=== PATIENT | male | born 1940 | race Caucasian/White ===

== ENCOUNTER → 2019-07-09 | Outpatient (REF) | payer OTHER | LOC: M LAB REF 09:04 | PROVIDERS: ATTEND Dermatology | DX: D49.2 Neoplasm of unspecified behavior of bone, soft tissue, and skin (principal); D22.62 Melanocytic nevi of left upper limb, including shoulder | CPT/HCPCS: 11102; 11103; 17000; 17003; 88305; 88342; G0463 ==

== ENCOUNTER → 2019-10-06 | Outpatient (REF) | payer OTHER | LOC: M LAB REF 10:09 | PROVIDERS: ATTEND Dermatology | DX: C44.1222 Squamous cell carcinoma of skin of right lower eyelid, including canthus (principal) ==

== ENCOUNTER 2020-04-20 12:31 | Inpatient (IN) | payer OTHER ==
[~2020-04-20] VITALS: Ht 185.4 cm; Wt 74.6 kg
[2020-04-20 13:22] LABS: BASO % 0.4 % (0.0-1.0); EOS % 0.8 % (0.0-3.0); HEMATOCRIT 43.1 % (42.0-52.0); HEMOGLOBIN 14.2 g/dl (13.5-17.5); LYMPH % 19.8 % (24.0-44.0); MEAN CORPUSCULAR HEMOGLOBIN 30.4 pg (27.0-33.0); MEAN CORPUSCULAR HGB CONC 32.9 g/dl (32.0-36.5); MEAN CORPUSCULAR VOLUME 92.3 fl (80.0-96.0); MONO # 1.5 10^3/uL (0.0-0.8); MONO % 28.2 % (0.0-5.0); NEUTROPHILS # 2.6 10^3/uL (1.5-8.5); NEUTROPHILS % 50.4 % (36.0-66.0); PLATELET COUNT, AUTOMATED 118 10^3/uL (150-450); RED BLOOD COUNT 4.67 10^6/uL (4.30-6.10); WHITE BLOOD COUNT 5.2 10^3/uL (4.0-10.0)
[2020-04-20 13:31] LABS: INR 1.04; PARTIAL THROMBOPLASTIN TIME 29.5 SECONDS (24.2-38.5); PROTHROMBIN TIME 13.8 SECONDS (12.5-14.3)
--- NOTE | 2020-04-20 13:38 | REP ---
INDICATION: CHEST PAIN COMPARISON: None. TECHNIQUE: Portable AP view of the chest FINDINGS: The mediastinum and cardiac silhouette are stable and within normal limits for portable technique. The lung jeffries demonstrate chronic appearing changes without acute consolidation, effusion, or pneumothorax. Skeletal structures are intact. IMPRESSION: Chronic appearing changes. No focal consolidation or effusion. <Electronically signed by Mitchell Piedra > 04/20/20 [id number]
[2020-04-20 13:54] LABS: ALBUMIN 3.4 GM/DL (3.2-5.2); ALT/SGPT 18 U/L (12-78); BILIRUBIN,DIRECT 0.1 MG/DL (0.0-0.2); BILIRUBIN,TOTAL 0.4 MG/DL (0.2-1.0); BLOOD UREA NITROGEN 21 MG/DL (7-18); CALCIUM LEVEL 8.9 MG/DL (8.8-10.2); CARBON DIOXIDE LEVEL 28 MEQ/L (21-32); CHLORIDE LEVEL 106 MEQ/L (98-107); CK-MB VALUE MASS 1.2 NG/ML (<3.6); CPK CREATINE PHOSPHOKINASE 64 U/L (39-308); CREATININE FOR GFR 0.99 MG/DL (0.70-1.30); FREE T4 1.04 NG/DL (0.76-1.46); GLOMERULAR FILTRATION RATE > 60.0 (>35); GLUCOSE, FASTING 85 MG/DL (70-100); LIPASE 94 U/L (73-393); MB/CK RELATIVE INDEX 1.88 (< OR =4); NT-PRO BNP 148 PG/ML (<450); POTASSIUM SERUM 3.7 MEQ/L (3.5-5.1); SODIUM LEVEL 142 MEQ/L (136-145); TOTAL PROTEIN 6.3 GM/DL (6.4-8.2); TROPONIN I < 0.02 NG/ML (< 0.10)
[2020-04-20] MEDS ORDERED: ISOVUE-370 76% 100ML VIAL As Ordered ONE (14:30)
--- NOTE | 2020-04-20 15:07 | REP ---
INDICATION: SOB/chest pain; r/o PE COMPARISON: None. TECHNIQUE: Axial contrast enhanced images from the thoracic inlet to the upper abdomen using pulmonary embolus technique with multiplanar re-formations. 75 ml Isovue 370 intravenous contrast material administered without complication. This CT examination was performed using the following dose reduction techniques: Automated exposure control, adjustment of mA and/or kv according to the patient's size, and use of iterative reconstruction technique. FINDINGS: Satisfactory enhancement of the pulmonary vasculature is achieved and no filling defects are identified to suggest pulmonary embolus. Further evaluation of the mediastinum demonstrates atherosclerotic changes to the thoracic aorta and coronary arteries without aortic aneurysm or dissection. Cardiomegaly suggested without pericardial effusion. The bilateral lung jeffries demonstrate chronic emphysematous changes with bronchiectasis and mild lower lobe scarring. Few scattered small calcified and noncalcified nodules measure up to 4 mm and likely represent chronic change. No acute consolidation. No effusion. No pneumothorax. No axillary, hilar, or mediastinal adenopathy. Surrounding musculoskeletal structures are intact. Limited upper abdomen demonstrates normal bilateral adrenal glands and cholelithiasis. IMPRESSION: 1. No evidence for pulmonary embolus. Relatively normal thoracic aorta without aneurysm or dissection. 2. Chronic emphysematous changes with bronchiectasis and minimal basilar scarring. 3. Incidental cholelithiasis. <Electronically signed by Mitchell Piedra > 04/20/20 [id number]
[2020-04-20 16:53] LABS: D-DIMER QUANT 1274.77 ng/ml (<500)
[2020-04-20 17:01] LABS: FERRITIN 124 NG/ML (26-388); LDH LACTATE DEHYDROGENASE 150 U/L (87-241)
[2020-04-20] MEDS ORDERED: MELO15TA28 PO (17:44)
[2020-04-20] MEDS ORDERED: LISI10TA4 PO (17:44)
[2020-04-20] MEDS ORDERED: ASPI-161 PO (17:44)
[2020-04-20] MEDS ORDERED: D31000TA2 PO (17:44)
[2020-04-20] MEDS ORDERED: VOLT1GEL15 TOP (17:44)
[2020-04-20] MEDS ORDERED: CETI-24 PO (17:44)
[2020-04-20] MEDS ORDERED: ZINC1TAB2 PO (17:44)
[2020-04-20] MEDS ORDERED: NEXI20CA PO (17:44)
[2020-04-20] MEDS ORDERED: ZOCO80TA PO (17:44)
[2020-04-20] MEDS ORDERED: PANTOPRAZOLE 40MG TAB (PROTONIX) PO PRN (18:00)
[2020-04-20 18:12] LABS: C REACTIVE PROTEIN QUANTITATIV 0.49 MG/DL (0.00-0.30)
[2020-04-20 18:51] VITALS: BP 147/85
--- NOTE | 2020-04-20 18:51 | HPEPDOC ---
[facility] Medical History & Physical Date of Admission Apr 20, 2020 Date of Service: Apr 20, 2020 Attending Physician: LIYAH VELEZ MD History and Physical CHIEF COMPLAINT: chest pain HISTORY OF PRESENT ILLNESS: 79 yo M with a history of COPD, CAD, Afib not on chronic AC, GERD, HLD, osteoarthritis, who presented with acute substernal atypical chest pain since this morning, reporting URI symptoms of a dry cough, SOB, congestion of 3 days duration. In the ED, he was hemodynamically stable and given his tobacco history, HLD, chest pain and history of Afib, he had an EKG that showed no ST or T wave changes and showed 1st degree heart block, while troponin was negative. He had a CXR that was unremarkable without consolidations or effusions and given the ongoing chest pain, he had a CTA chest done that showed no PE and chronic emphysema without GGOs, masses or evidence of PNA. Given the history of recent URI symptoms he had a respiratory panel done that resulted in a positive covid-19 test. WBC was 5.2, hgb 14.2, platelets 118, D dimer 1274, INR 1.04, troponin negative, LFTs wnl, TSH and free T4 wnl lactate wnl, proBNP of 148 wnl. He did not desaturate on ambulation and is stable on room air currently. He is however being admitted as his ROSALIND score per guidelines showed 11% risk for mortality given his age >65, male gender, COPD, HTN, heart disease history. PAST MEDICAL HISTORY: COPD, CAD, Afib not on chronic AC, GERD, HLD, osteoarthritis, HTN PAST SURGICAL HISTORY: back surgery R hand digit amputation SOCIAL HISTORY: Independent with all ADLs and iADLs. Lives at home. FAMILY HISTORY: non contributory ALLERGIES: Please see below. REVIEW OF SYSTEMS: As noted in HPI. 12 point ROS was otherwise negative. HOME MEDICATIONS: Please see below. PHYSICAL EXAMINATION: VITAL SIGNS: HDS, afebrile, stable on room air. See below for details GENERAL APPEARANCE: NAD, well appearing older gentleman HEENT: NCAT, no injection or icterus. MMM CARDIOVASCULAR: MMM, no m/r/g LUNGS: CTAB at this time ABDOMEN: Normoactive sounds, NTND EXTREMITIES: WWP, no LE edema NEUROLOGICAL: CN2-12 intact, moving all extremities, nonfocal exam PSYCHIATRIC: AOx3 LABORATORY DATA: Summarized above. IMAGING: Summarized above MICROBIOLOGY: Please see below. ASSESSMENT: 79 yo M admitted covid PNA with associated chest pain. PLAN: Covid PNA: -contact and droplet isolation -currently on room air, may give supplemental O2 if <88% -Q4H vitals with pulse ox -strict covid labs per guideline -Currently doing well, no steroids or other adjunctive therapies or pulmonology consultation. Will monitor labs -lovenox 40 BID DVT ppx Chest pain with history of CAD: no evidence of ACS at this time -non ischemic EKG, negative troponin -telemetry -f/u troponin labs -continue home ASA -continue home simvastatin HLD: -continue home simvastatin COPD: no evidence of exacerbation at this time -monitoring sats closely -advair and albuterol mdi History of Afib not on home AC: -telemetry -currently in sinus -placed on lovenox 40 BID for covid thrombosis ppx -ASA 162 QHS HTN: -continue home lisinopril DVT ppx: lovenox 40mg BID Dispo: medsurg with tele. Vital Signs Vital Signs Date Time Temp Pulse Resp B/P (MAP) Pulse Ox O2 Delivery O2 Flow Rate FiO2 04/20/20 18:01 62 92 04/20/20 18:00 140/80 (100) 04/20/20 13:18 Room Air 04/20/20 12:33 98.3 24 Laboratory Data Labs 24H Laboratory Tests 2 04/20/20 12:54: Immature Granulocyte % (Auto) 0.4, Neutrophils (%) (Auto) 50.4, Lymphocytes (%) (Auto) 19.8L, Monocytes (%) (Auto) 28.2H, Eosinophils (%) (Auto) 0.8, Basophils (%) (Auto) 0.4, Neutrophils # (Auto) 2.6, Lymphocytes # (Auto) 1.0L, Monocytes # (Auto) 1.5H, Eosinophils # (Auto) 0.0, Basophils # (Auto) 0.0, Nucleated Red Blood Cells % (auto) 0.0, Prothrombin Time 13.8, Prothromb Time International Ratio 1.04, Activated Partial Thromboplast Time 29.5, Fibrinogen 381, D-Dimer, Quantitative 1274.77H, Anion Gap 8, Glomerular Filtration Rate > 60.0, Lactic Acid Level 1.2, Calcium Level 8.9, Magnesium Level 2.0, Ferritin 124, Total Bilirubin 0.4, Direct Bilirubin 0.1, Aspartate Amino Transf (AST/SGOT) 22, Alanine Aminotransferase (ALT/SGPT) 18, Alkaline Phosphatase 44L, Lactate Dehydrogenase 150, Total Creatine Kinase 64, Creatine Kinase MB 1.2, Creatine Kinase MB Relative Index 1.88, Troponin I < 0.02, TC-Chp-R-Type Natriuretic Peptide 148, Total Protein 6.3L, Albumin 3.4, Albumin/Globulin Ratio 1.2, Lipase 94, Procalcitonin <0.05, Thyroid Stimulating Hormone (TSH) 2.990, Free Thyroxine 1.04 04/20/20 15:26: Coronavirus (COVID-19)(PCR) POSITIVEA CBC/BMP Laboratory Tests 04/20/20 12:54 Microbiology Microbiology 04/20/20 Blood Culture, Received Pending 04/20/20 Blood Culture, Received Pending Home Medications Scheduled Aspirin (Aspirin EC) 81 Mg Tablet.dr, 162 MG PO QHS Cetirizine HCl (Cetirizine HCl) 10 Mg Tablet, 10 MG PO QHS Cholecalciferol (Vitamin D3) (Vitamin D3) 1,000 Unit Tablet, 1,000 UNITS PO DAILY Lisinopril (Lisinopril) 10 Mg Tablet, 10 MG PO DAILY Meloxicam (Meloxicam) 15 Mg Tablet, 7.5 MG PO DAILY Simvastatin (Zocor) 80 Mg Tablet, 80 MG PO DAILY Zinc (Zinc) 50 Mg Tablet, 50 MG PO DAILY Scheduled PRN Diclofenac Sodium (Voltaren) 100 Gm Gel..gram., 2 GRAM TOP BID PRN for PAIN APPLY TO THUMB AND KNEES Esomeprazole Magnesium (Nexium) 20 Mg Capsule.dr, 20 MG PO DAILY PRN for HEARTB URN Allergies Coded Allergies: No Known Allergies (Unverified , 04/20/20) A-FIB/CHADSVASC A-FIB History Current/History of A-Fib/PAF?: No Current PO Anticoag Therapy: No Age/Risk Factor Scoring CHADSVASC: CHADSVASC Response (Comments) Value Age Risk Factor Age >/= 75 years old 2 Gender Risk Factor Male 0 Hx of CHF Yes 1 Hx of HTN Yes 1 Hx of Stroke/TIA/or VTE No 0 Hx of Diabetes No 0 Hx of Vascular Disease Yes 1 Total 5 Treatment Treatment ordered: NONE Reason Anticoagulant not given: Not indicated/[id number] LIYAH VELEZ MD Apr 20, 2020 18:24
[2020-04-20 19:35] LABS: TRIGLYCERIDES LEVEL 96 MG/DL (<150)
[2020-04-20 20:00] LABS: HEPATITIS B SURFACE ANTIGEN NEGATIVE (NEGATIVE)
[2020-04-20] MEDS: PANTOPRAZOLE 20 MG TAB PO SCH (20:18)
[2020-04-20] MEDS: CETIRIZINE (ZyrTEC) 10 MG TAB PO SCH (20:18)
[2020-04-20] MEDS: ENOXAPARIN 40MG/0.4ML SYRINGE (J1650 PER 10MG) SC SCH (20:18)
[2020-04-20] MEDS: ASPIRIN 81 MG ENTERIC TAB PO SCH (20:18)
[2020-04-20 20:36] VITALS: BP 132/72; O2SAT 96
--- NOTE | 2020-04-20 22:05 | ECGEPIP ---
[facility] - ED Test Date: 2020-04-20 Pat Name: DEMETRIA DE LA O Department: Room: - Gender: Male Social Services Coordinator: tin holm : 1940 Requested By: Atiya Grullon Order Number: [id number] Reading MD: Dav Lyons Measurements Intervals [place] Rate: 64 P: 37 [place]: 267 QRS: -17 QRSD: 136 T: 75 QT: 434 QTc: 450 Interpretive Statements SINUS RHYTHM WITH FIRST DEGREE AV BLOCK WITH OCCASIONAL SUPRAVENTRICULAR PREMATURE COMPLEXES INTRAVENTRICULAR CONDUCTION DELAY Comparison tracing not on file Electronically Signed on 04-20-2020 22:04:39 EST by Dav Lyons
[2020-04-21] VITALS (8 sets, daily range): BP systolic 113–126; BP diastolic 55–74; O2SAT 94–97
[2020-04-21] MEDS ORDERED: ALBUTEROL 90 MCG/ACT 8GM HFA INHALER INH PRN (07:45)
[2020-04-21] MEDS: ADVAIR HFA 115/21MCG INHALER INH SCH ×2 (08:00→20:18)
[2020-04-21] MEDS: VITAMIN D 1,000 INTERNATIONAL UNITS TABLET PO SCH (08:23)
[2020-04-21] MEDS: SIMVASTATIN 40 MG TAB PO SCH (08:23)
[2020-04-21] MEDS: lisinopriL 10 MG TAB PO SCH (08:24)
[2020-04-21] MEDS: BENZONATATE 100 MG CAP PO SCH ×3 (08:25→20:06)
[2020-04-21] MEDS: MELOXICAM (MOBIC) 7.5 MG TAB PO SCH (08:25)
[2020-04-21] MEDS: PANTOPRAZOLE 20 MG TAB PO SCH (08:25)
[2020-04-21] MEDS: ENOXAPARIN 40MG/0.4ML SYRINGE (J1650 PER 10MG) SC SCH ×2 (08:26→20:07)
[2020-04-21] MEDS: CHLORHEXIDINE GLUCONATE 0.12 % 15ML UDC (PERIDEX ORAL RINSE) MT SCH ×2 (09:00→20:06)
[2020-04-21 09:06] LABS: BASO % 0.5 % (0.0-1.0); EOS % 0.4 % (0.0-3.0); HEMATOCRIT 45.5 % (42.0-52.0); HEMOGLOBIN 14.9 g/dl (13.5-17.5); LYMPH # 1.7 10^3/uL (1.5-5.0); LYMPH % 31.3 % (24.0-44.0); MEAN CORPUSCULAR HEMOGLOBIN 30.2 pg (27.0-33.0); MEAN CORPUSCULAR HGB CONC 32.7 g/dl (32.0-36.5); MEAN CORPUSCULAR VOLUME 92.3 fl (80.0-96.0); MONO # 1.6 10^3/uL (0.0-0.8); MONO % 28.4 % (0.0-5.0); NEUTROPHILS # 2.2 10^3/uL (1.5-8.5); PLATELET COUNT, AUTOMATED 120 10^3/uL (150-450); RED BLOOD COUNT 4.93 10^6/uL (4.30-6.10); WHITE BLOOD COUNT 5.5 10^3/uL (4.0-10.0)
[2020-04-21 09:25] LABS: INR 1.05; PARTIAL THROMBOPLASTIN TIME 34.5 SECONDS (24.2-38.5); PROTHROMBIN TIME 13.9 SECONDS (12.5-14.3)
[2020-04-21 09:28] LABS: D-DIMER QUANT 967.01 ng/ml (<500)
[2020-04-21 09:49] LABS: ALBUMIN 3.4 GM/DL (3.2-5.2); ALT/SGPT 19 U/L (12-78); BILIRUBIN,DIRECT < 0.1 MG/DL (0.0-0.2); BILIRUBIN,TOTAL 0.4 MG/DL (0.2-1.0); BLOOD UREA NITROGEN 19 MG/DL (7-18); CALCIUM LEVEL 8.9 MG/DL (8.8-10.2); CARBON DIOXIDE LEVEL 26 MEQ/L (21-32); CHLORIDE LEVEL 107 MEQ/L (98-107); FERRITIN 131 NG/ML (26-388); GLOMERULAR FILTRATION RATE > 60.0 (>35); GLUCOSE, FASTING 77 MG/DL (70-100); LDH LACTATE DEHYDROGENASE 167 U/L (87-241); MAGNESIUM LEVEL 1.9 MG/DL (1.8-2.4); NT-PRO BNP 145 PG/ML (<450); POTASSIUM SERUM 4.1 MEQ/L (3.5-5.1); SODIUM LEVEL 140 MEQ/L (136-145); TOTAL PROTEIN 6.7 GM/DL (6.4-8.2); TRIGLYCERIDES LEVEL 73 MG/DL (<150); TROPONIN I < 0.02 NG/ML (< 0.10)
[2020-04-21] MEDS ORDERED: SENNA 8.6 MG TAB (SENOKOT) PO PRN (10:30)
--- NOTE | 2020-04-21 19:01 | IPNPDOC ---
Text Note Date of Service The patient was seen on 04/21/20. NOTE Subjective: -L sided rib pain worse with movement or coughing. -No SOB, cough remains dry and has mildly improved. -No dyspnea on exertion at this time and stable on room air Objective: PHYSICAL EXAMINATION: VITAL SIGNS: Hemodynamically stable, afebrile, stable on room air. See below for details GENERAL APPEARANCE: NAD, well appearing older gentleman HEENT: NCAT, no injection or icterus. 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 NEUROLOGICAL: CN2-12 intact, moving all extremities, nonfocal exam PSYCHIATRIC: AOx3 LABORATORY DATA: Pending AM labs IMAGING: CTA chest: Satisfactory enhancement of the pulmonary vasculature is achieved and no filling defects are identified to suggest pulmonary embolus. Further evaluation of the mediastinum demonstrates atherosclerotic changes to the thoracic aorta and coronary arteries without aortic aneurysm or dissection. Cardiomegaly suggested without pericardial effusion. The bilateral lung jeffries demonstrate chronic emphysematous changes with bronchiectasis and mild lower lobe scarring. Few scattered small calcified and noncalcified nodules measure up to 4 mm and likely represent chronic change. No acute consolidation. No effusion. No pneumothorax. No axillary, hilar, or mediastinal adenopathy. Surrounding musculoskeletal structures are intact. Limited upper abdomen demonstrates normal bilateral adrenal glands and cholelithiasis. IMPRESSION: 1. No evidence for pulmonary embolus. Relatively normal thoracic aorta without aneurysm or dissection. 2. Chronic emphysematous changes with bronchiectasis and minimal basilar scarring. 3. Incidental cholelithiasis. CXR: The mediastinum and cardiac silhouette are stable and within normal limits for portable technique. The lung jeffries demonstrate chronic appearing changes without acute consolidation, effusion, or pneumothorax. Skeletal structures are intact. IMPRESSION: Chronic appearing changes. No focal consolidation or effusion. MICROBIOLOGY: Please see below. Covid-19 positive BCX - NGTD x 2 ASSESSMENT: 79 yo M admitted symptomatic covid -19 infection with associated chest wall pain. PLAN: Covid-19 PNA: -contact and droplet isolation -currently on room air, may give supplemental O2 if <88% -Q4H vitals with pulse ox -strict covid labs per guidelines, AM labs pending -Currently doing well, no steroids or other adjunctive therapies or official pulmonology consultation at this. -lovenox 40 BID DVT ppx -Add Tessalon Perls for cough -Telemetry with noted Wenkeback with brief type 2 episodes on exertion. Discussed with Dr. Dale, will keep him inpatient for monitoring. Chest pain with history of CAD: no evidence of ACS at this time -non ischemic EKG, negative troponin -telemetry -continue home ASA -continue home simvastatin HLD: -continue home simvastatin COPD: no evidence of exacerbation at this time -monitoring sats closely -advair and albuterol i History of Afib not on home AC: -telemetry with some Wenkebach but also brief moments of mobitz II, spoke with Dr. Dale who recommended continued monitoring for now instead of discharge home. -currently in sinus -placed on lovenox 40 BID for covid thrombosis ppx -ASA 162 QHS HTN: -continue home lisinopril DVT ppx: lovenox 40mg BID Dispo: medsurg with tele. VS,Juan, I+O VS, Clevelande, I+O Laboratory Tests 04/20/20 12:54 Vital Signs Date Time Temp Pulse Resp B/P (MAP) Pulse Ox O2 Delivery O2 Flow Rate FiO2 04/21/20 06:00 97.4 70 16 122/67 (85) 94 Room Air l I&O- Last 24 Hours up to 6 AM 04/21/20 06:00 Intake Total 300 ml Output Total 175 ml Balance 125 ml LIYAH VELEZ MD Apr 21, 2020 07:40
[2020-04-21] MEDS: ASPIRIN 81 MG ENTERIC TAB PO SCH (20:06)
[2020-04-21] MEDS: CETIRIZINE (ZyrTEC) 10 MG TAB PO SCH (20:06)
[2020-04-22] VITALS (7 sets, daily range): BP systolic 113–150; BP diastolic 72–87; O2SAT 93–95
[2020-04-22] MEDS ORDERED: BENZONATATE 100 MG CAP PO SCH
[2020-04-22] MEDS ORDERED: CHLORHEXIDINE GLUCONATE 0.12 % 15ML UDC (PERIDEX ORAL RINSE) SSP SCH
[2020-04-22] MEDS ORDERED: ALBUTEROL 90 MCG/ACT 8GM HFA INHALER INH SCH
[2020-04-22] MEDS: ADVAIR HFA 115/21MCG INHALER INH SCH (08:00)
[2020-04-22] MEDS: CHLORHEXIDINE GLUCONATE 0.12 % 15ML UDC (PERIDEX ORAL RINSE) MT SCH (08:26)
[2020-04-22] MEDS: ENOXAPARIN 40MG/0.4ML SYRINGE (J1650 PER 10MG) SC SCH (08:28)
[2020-04-22] MEDS: lisinopriL 10 MG TAB PO SCH (08:29)
[2020-04-22] MEDS: VITAMIN D 1,000 INTERNATIONAL UNITS TABLET PO SCH (08:29)
[2020-04-22] MEDS: SIMVASTATIN 40 MG TAB PO SCH (08:29)
[2020-04-22] MEDS: MELOXICAM (MOBIC) 7.5 MG TAB PO SCH (08:29)
[2020-04-22] MEDS: PANTOPRAZOLE 20 MG TAB PO SCH (08:29)
[2020-04-22] MEDS: BENZONATATE 100 MG CAP PO SCH (08:29)
[2020-04-22 08:43] LABS: HEMATOCRIT 44.2 % (42.0-52.0); HEMOGLOBIN 14.4 g/dl (13.5-17.5); MEAN CORPUSCULAR HEMOGLOBIN 30.4 pg (27.0-33.0); MEAN CORPUSCULAR HGB CONC 32.6 g/dl (32.0-36.5); MEAN CORPUSCULAR VOLUME 93.4 fl (80.0-96.0); PLATELET COUNT, AUTOMATED 118 10^3/uL (150-450); RED BLOOD COUNT 4.73 10^6/uL (4.30-6.10); WHITE BLOOD COUNT 5.9 10^3/uL (4.0-10.0)
[2020-04-22] MEDS ORDERED: PERI12LIQ MT (08:48)
[2020-04-22] MEDS ORDERED: ADVA115A INH (08:48)
[2020-04-22] MEDS ORDERED: VENTAER INH (08:48)
[2020-04-22] MEDS ORDERED: BENZ-18 PO (08:48)
[2020-04-22 08:58] LABS: INR 0.96
[2020-04-22 08:59] LABS: PARTIAL THROMBOPLASTIN TIME 33.7 SECONDS (24.2-38.5)
[2020-04-22 09:01] LABS: D-DIMER QUANT 543.9 ng/ml (<500)
[2020-04-22 09:05] LABS: ALBUMIN 3.2 GM/DL (3.2-5.2); ALT/SGPT 19 U/L (12-78); BILIRUBIN,DIRECT 0.1 MG/DL (0.0-0.2); BILIRUBIN,TOTAL 0.3 MG/DL (0.2-1.0); BLOOD UREA NITROGEN 24 MG/DL (7-18); CALCIUM LEVEL 8.4 MG/DL (8.8-10.2); CARBON DIOXIDE LEVEL 29 MEQ/L (21-32); CHLORIDE LEVEL 107 MEQ/L (98-107); CREATININE FOR GFR 0.93 MG/DL (0.70-1.30); FERRITIN 118 NG/ML (26-388); GLOMERULAR FILTRATION RATE > 60.0 (>35); GLUCOSE, FASTING 106 MG/DL (70-100); MAGNESIUM LEVEL 1.9 MG/DL (1.8-2.4); NT-PRO BNP 72 PG/ML (<450); POTASSIUM SERUM 4.1 MEQ/L (3.5-5.1); SODIUM LEVEL 141 MEQ/L (136-145); TOTAL PROTEIN 6.1 GM/DL (6.4-8.2)
--- NOTE | 2020-04-22 10:54 | DS.PDOC ---
Discharge Summary General Date of Admission Apr 20, 2020 at 17:51 Date of Discharge 04/22/2020 Attending Physician: LIYAH VELEZ MD Discharge Summary PROCEDURES PERFORMED DURING STAY: None ADMITTING DIAGNOSES: 1. Covid-19 infection DISCHARGE DIAGNOSES: Covid-19 infection COPD CAD History of chronic Afib not on chronic AC Asymptomatic 1st degree, episodes of Morbitz type 1 and non-sustained transient episodes of Morbitz 2 GERD HLD Osteoarthritis HTN COMPLICATIONS/CHIEF COMPLAINT: Covid 19 Virus Infection. HISTORY OF PRESENT ILLNESS: 79 yo M with a history of COPD, CAD, Afib not on chronic AC, GERD, HLD, osteoarthritis, who presented with acute atypical chest pain since the morning of presentation, reporting URI symptoms of a wet cough, SOB, congestion of 3 days duration. HOSPITAL COURSE: In the ED, he was hemodynamically stable and given his tobacco history, HLD, chest pain and history of Afib, he had an EKG that showed no ST or T wave changes and showed 1st degree heart block, while troponin was negative. He had a CXR that was unremarkable without consolidations or effusions and given the ongoing chest pain, he had a CTA chest done that showed no PE and chronic emphysema without GGOs, masses or evidence of PNA. Given the history of recent URI symptoms he had a respiratory panel done that resulted in a positive covid- 19 test. WBC was 5.2, hgb 14.2, platelets 118, D dimer 1274, INR 1.04, troponin negative, LFTs wnl, TSH and free T4 wnl lactate wnl, proBNP of 148 wnl. He did not desaturate on ambulation and remained stable on room air. He was however admitted as his ROSALIND score per guidelines showed 11% risk for mortality given his age >65, male gender, COPD, HTN, heart disease history. While inpatient, he did very well, continued to be stable on room air, did not require adjunctive supportive therapies except for COPD mdi's per standard of care. His course was c/b noted asymptomatic 1st degree and episodes of morbitz 1 and rare morbitz 2 heartblock. He was monitored and continued to do well and is now being discharged home to self isolate for an additional 14 days. DISCHARGE MEDICATIONS: Please see below. ALLERGIES: Please see below. PHYSICAL EXAMINATION ON DISCHARGE: VITAL SIGNS: Hemodynamically stable, afebrile, stable on room air. See below for details GENERAL APPEARANCE: NAD, well appearing older gentleman HEENT: NCAT, no injection or icterus. 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 NEUROLOGICAL: CN2-12 intact, moving all extremities, nonfocal exam PSYCHIATRIC: AOx3 LABORATORY DATA: Please see below. IMAGING: CTA chest: Satisfactory enhancement of the pulmonary vasculature is achieved and no filling defects are identified to suggest pulmonary embolus. Further evaluation of the mediastinum demonstrates atherosclerotic changes to the thoracic aorta and coron jose arteries without aortic aneurysm or dissection. Cardiomegaly suggested without pericardial effusion. The bilateral lung jeffries demonstrate chronic emphysematous changes with bronchiectasis and mild lower lobe scarring. Few scattered small calcified and noncalcified nodules measure up to 4 mm and likely represent chronic change. No acute consolidation. No effusion. No pneumothorax. No axillary, hilar, or mediastinal adenopathy. Surrounding musculoskeletal structures are intact. Limited upper abdomen demonstrates normal bilateral adrenal glands and cholelithiasis. IMPRESSION: 1. No evidence for pulmonary embolus. Relatively normal thoracic aorta without aneurysm or dissection. 2. Chronic emphysematous changes with bronchiectasis and minimal basilar scarring. 3. Incidental cholelithiasis. CXR: The mediastinum and cardiac silhouette are stable and within normal limits for portable technique. The lung jeffries demonstrate chronic appearing changes without acute consolidation, effusion, or pneumothorax. Skeletal structures are intact. PROGNOSIS: Good to fair. To return to the hospital if he develops dyspnea as covid-19 symptoms can acutely worsen unexpectedly. ACTIVITY: As tolerated. DIET: Regular DISCHARGE PLAN: Home and self isolate for 14 days. To return to the hospital if he develops dyspnea as covid-19 symptoms can acutely worsen unexpectedly. DISPOSITION: Home and self isolate for 14 days. To return to the hospital if he develops dyspnea as covid-19 symptoms can acutely worsen unexpectedly. DISCHARGE INSTRUCTIONS: 1. Home and self isolate for 14 days. To return to the hospital if he develops dyspnea as covid-19 symptoms can acutely worsen unexpectedly. Please have someone deliver your prescribed pharmacy medications directly to your home as you are on self-isolation. DO NOT GO TO THE PHARMACY. ITEMS TO FOLLOWUP ON ON OUTPATIENT: 1. Covid-19 infection and URI resolution, in 3 weeks with PCP DISCHARGE CONDITION: Stable TIME SPENT ON DISCHARGE: 42 minutes. Vital Signs/I&Os Vital Signs Date Time Temp Pulse Resp B/P (MAP) Pulse Ox O2 Delivery O2 Flow Rate FiO2 04/22/20 06:03 96.8 63 18 148/87 (107) 95 Room Air I&O- Last 24 Hours up to 6 AM 04/22/20 06:00 Intake Total 300 ml Output Total 350 ml Balance -50 ml Laboratory Data Labs 24H Laboratory Tests 2 04/21/20 08:22: Immature Granulocyte % (Auto) 0.4, Neutrophils (%) (Auto) 39.0, Lymphocytes (%) (Auto) 31.3, Monocytes (%) (Auto) 28.4H, Eosinophils (%) (Auto) 0.4, Basophils (%) (Auto) 0.5, Neutrophils # (Auto) 2.2, Lymphocytes # (Auto) 1.7, Monocytes # (Auto) 1.6H, Eosinophils # (Auto) 0.0, Basophils # (Auto) 0.0, Nucleated Red Blood Cells % (auto) 0.0, Prothrombin Time 13.9, Prothromb Time International Ratio 1.05, Activated Partial Thromboplast Time 34.5, Fibrinogen 384, D-Dimer, Quantitative 967.01H, Anion Gap 7L, Glomerular Filtration Rate > 60.0, Calcium Level 8.9, Magnesium Level 1.9, Ferritin 131, Total Bilirubin 0.4, Direct Bilirubin < 0.1, Aspartate Amino Transf (AST/SGOT) 22, Alanine Aminotransferase (ALT/SGPT) 19, Alkaline Phosphatase 42L, Lactate Dehydrogenase 167, Troponin I < 0.02, C-Reactive Protein, Quantitative 0.40H, ZO-Fve-D-Type Natriuretic Peptide 145, Total Protein 6.7, Albumin 3.4, Albumin/Globulin Ratio 1.0, Triglycerides Level 73, Procalcitonin <0.05 04/21/20 17:57: D-Dimer, Quantitative 702.04H, C-Reactive Protein, Quantitative 0.39H CBC/BMP Laboratory Tests 04/21/20 08:22 Microbiology Microbiology 04/21/20 Gram Stain - Final, Complete 04/21/20 Sputum Culture - Final, Complete 04/20/20 Blood Culture - Preliminary, Resulted No growth after 24 hours . All specim... 04/20/20 Blood Culture - Preliminary, Resulted No growth after 24 hours . All specim... Discharge Medications Scheduled Aspirin (Aspirin EC) 81 Mg Tablet.dr, 162 MG PO QHS, (Reported) Benzonatate (Benzonatate) 100 Mg Capsule, 100 MG PO TID Cetirizine HCl (Cetirizine HCl) 10 Mg Tablet, 10 MG PO QHS, (Reported) Chlorhexidine Gluconate (Chlorhexidine Gluconate) 473 Ml Mouthwash, 15 ML MT BID Cholecalciferol (Vitamin D3) (Vitamin D3) 1,000 Unit Tablet, 1,000 UNITS PO DAILY, (Reported) Fluticasone Propion/Salmeterol (Advair Hfa 115-21 Mcg Inhaler) 12 Gm Hfa.aer.ad, 2 PUFF INH RBID Lisinopril (Lisinopril) 10 Mg Tablet, 10 MG PO DAILY, (Reported) Meloxicam (Meloxicam) 15 Mg Tablet, 7.5 MG PO DAILY, (Reported) Simvastatin (Zocor) 80 Mg Tablet, 80 MG PO DAILY, (Reported) Zinc (Zinc) 50 Mg Tablet, 50 MG PO DAILY, (Reported) Scheduled PRN Albuterol Sulfate (Ventolin Hfa) 18 Gm Hfa.aer.ad, 2 PUFF INH Q4HP PRN for SHORTNESS OF BREATH Diclofenac Sodium (Voltaren) 100 Gm Gel..gram., 2 GRAM TOP BID PRN for PAIN, (Reported) APPLY TO THUMB AND KNEES Esomeprazole Magnesium (Nexium) 20 Mg Capsule.dr, 20 MG PO DAILY PRN for HEARTBURN, (Reported) Allergies Coded Allergies: No Known Allergies (Unverified , 04/20/20) LIYAH VELEZ MD Apr 22, 2020 08:02
== END 2020-04-22 15:00 | disposition home or self-care (01) | DRG 178 ==
LOC: M ED 12:31 → EEVIPCON 17:51 → M ED INP 17:51 → ENRESERV 18:15 → M 4MAIN 18:45
PROVIDERS: ADMIT Internal Medicine; ATTEND Internal Medicine
DX: U07.1 COVID-19 (principal); I48.20 Chronic atrial fibrillation, unspecified; J44.9 Chronic obstructive pulmonary disease, unspecified; I25.10 Atherosclerotic heart disease of native coronary artery without angina pectoris; K21.9 Gastro-esophageal reflux disease without esophagitis; I44.0 Atrioventricular block, first degree; E78.5 Hyperlipidemia, unspecified; M19.90 Unspecified osteoarthritis, unspecified site; I10 Essential (primary) hypertension; Z79.82 Long term (current) use of aspirin; Z79.899 Other long term (current) drug therapy; Z79.1 Long term (current) use of non-steroidal anti-inflammatories (NSAID)

== ENCOUNTER 2022-03-19 16:32 | Emergency (ER) | payer OTHER ==
[~2022-03-19] VITALS: Ht 185.4 cm; Wt 71.1 kg
[~2022-03-19 16:32] MED LIST: ADVA115A INH; ASPI-161 PO; BENZ-18 PO; CETI-24 PO; LISI10TA22 PO; MELO15TA28 PO; NEXI20CA PO; PERI12LIQ MT; VENTAER INH; VITA100093 PO; VOLT1GEL15 TOP; ZINC1TAB2 PO; ZOCO80TA PO
[2022-03-19] MEDS ORDERED: DERMABOND TOPICAL SKIN ADHESIVE TOP ONE (18:25)
[2022-03-19 18:41] VITALS: BP 119/73
== END 2022-03-19 18:55 | disposition home or self-care (01) ==
LOC: M ED 16:32
DX: S61.011A Laceration without foreign body of right thumb without damage to nail, initial encounter (principal); W26.0XXA Contact with knife, initial encounter; Y92.009 Unspecified place in unspecified non-institutional (private) residence as the place of occurrence of the external cause; I48.91 Unspecified atrial fibrillation; I10 Essential (primary) hypertension; E78.5 Hyperlipidemia, unspecified; J44.9 Chronic obstructive pulmonary disease, unspecified; Z79.899 Other long term (current) drug therapy; Z79.82 Long term (current) use of aspirin